=== PATIENT | female | born 1965 | race Two or more races ===

== ENCOUNTER 2020-07-08 12:37 | Emergency (ER) | payer MEDICAID, OTHER ==
[~2020-07-08] VITALS: Ht 152.4 cm; Wt 69.9 kg
[2020-07-08 15:05] VITALS: BP 128/85
== END 2020-07-08 15:41 | disposition home or self-care (01) ==
LOC: ER 12:37
DX: S00.03XA Contusion of scalp, initial encounter (principal); H11.32 Conjunctival hemorrhage, left eye; I10 Essential (primary) hypertension; Z90.49 Acquired absence of other specified parts of digestive tract; W18.39XA Other fall on same level, initial encounter; Y93.89 Activity, other specified; Y92.89 Other specified places as the place of occurrence of the external cause; Y99.8 Other external cause status
CPT/HCPCS: 70450; 70486